=== PATIENT | female | born 1965 | race Caucasian/White ===

== ENCOUNTER 2016-12-13 06:36 | Emergency (ER) | payer OTHER ==
[2016-12-13 06:45] VITALS: BP 118/77; PULSE 90; TEMP 98.7; BMI 25.3
[2016-12-13] MEDS ORDERED: ONDANSETRON 4 MG/2 ML VIAL IVPUSH ONE (06:49)
[2016-12-13] MEDS ORDERED: SODIUM CHLORIDE 1,000 ML IV ONE (06:49)
[2016-12-13] MEDS ORDERED: KETOROLAC TROMETHAMINE 30 MG/1 ML VIAL IVPUSH ONE (06:49)
--- NOTE | 2016-12-13 06:53 | PDOC ---
History of Present Illness - General Chief Complaint: Pain, Acute Stated Complaint: UPPER ADBOMINAL PAIN Time Seen by Provider: 12/13/16 06:45 History Source: Patient Exam Limitations: No Limitations - History of Present Illness Initial Comments: 12/13/16 06:46 This is a 51-year-old female who comes in complaining of 2 days of right upper quadrant abdominal pain. Patient said that it is constant and crampy in nature. Patient said that eating food makes it worse. Patient says it is associated with some nausea and she has vomited twice. Patient denies any fevers or chills patient denies any diarrhea. Patient denies history of similar symptoms in the past. Patient said she is otherwise healthy. PAST MEDICAL HISTORY: no significant history PAST SURGICAL HISTORY: no significant history FAMILY HISTORY: no pertinant history SOCIAL HISTORY: Pt lives with family and is employed. MEDICATIONS: reviewed ALLERGIES: As per nursing notes Review of Systems General: No fevers or chills, no weakness, no weight loss HEENT: No change in vision. No sore throat,. No ear pain CardioVascular: No chest pain or shortness of breath Respiratory:No cough, or wheezing. Gastrointestinal: Nausea, vomiting, and abdominal pain as per history of present illness: No joint or muscle pain or swelling Neurologic: No headache, vertigo, dizziness or loss of consciousness Psychiatric: nor depression Skin: No rashes or easy bruising Endocrine: no increased thirst or abnormal weight change Allergic: no skin or latex allergy All other systems reviewed and normal Exam: General: Well-nourished well-developed individual, no acute distress HEENT: Throat: Normal, tonsils normal, no erythema or exudate Neck: Supple, no meningeal signs, no lymphadenopathy Eyes::Pupils equal reactive and round, extraocular motion intact Chest: Nontender to palpation Cardiac: S1-S2 normal, regular rate and rhythm, no murmurs rubs or gallops Respiratory: Lungs clear to auscultation bilateral Abdomen: Soft, nondistended, normal bowel sounds, tender to palpation, epigastric and right upper quadrant, there is no guarding or rebound. Extremities: Warm, dry, no cyanosis, clubbing, or edema Skin: No rashes Neuro: Alert and oriented x3, nonfocal exam, grossly intact, normal gait Psych: Normal mood and affect Care of this patient was transferred to Dr. Livier at 7 AM. Patient's complete workup is still pending including labs and IV and medications Case discussed in detail with oncoming Emergency Physician including history, physical exam and ancillary studies. Oncoming Emergency Physician has assumed care for the patient and will complete the evaluation and treatment. Patient is aware of the plan. Pt is clinically unchanged and stable. Past History - Past Medical History Allergies/Adverse Reactions: Allergies Allergy/AdvReac Type Severity Reaction Status Date / Time Apple Tree Allergy Mild Hives Verified 12/13/16 06:38 peanut [Peanut] Allergy Hives Verified 12/13/16 06:38 strawberry [[place]] AdvReac Hives Verified 12/13/16 06:38 bananas Allergy Mild Itching Uncoded 01/06/16 10:50 Home Medications: Ambulatory Orders Mag Hydrox/Al Hydrox/Simeth [MAALOX *SUSPENSION* -] 30 ml PO Q6H PRN #1 bottle 12/13/16 Ranitidine [Zantac -] 150 mg PO DAILY #14 tablet 12/13/16 Other medical history: DENIES - Psycho/Social/Smoking Cessation Hx Anxiety: No Suicidal Ideation: No Smoking Status: Yes Smoking History: Never smoked Have you smoked in the past 12 months: No Number of Cigarettes Smoked Daily: 0 Information on smoking cessation initiated: No Hx Alcohol Use: No Drug/Substance Use Hx: No Substance Use Type: None *Physical Exam - Vital Signs Last Vital Signs Temp Pulse Resp BP Pulse Ox 98.7 F 90 18 118/77 100 12/13/16 06:40 12/13/16 06:40 12/13/16 06:40 12/13/16 06:40 12/13/16 06:40 ED Treatment Course - LABORATORY CBC & Chemistry Diagram: 12/13/16 07:08 12/13/16 07:08 *DC/Admit/Observation/Transfer Diagnosis at time of Disposition: Epigastric pain - Discharge Dispostion Disposition: HOME Condition at time of disposition: Improved - Prescriptions Prescriptions: Mag Hydrox/Al Hydrox/Simeth [MAALOX *SUSPENSION* -] 30 ml PO Q6H PRN #1 bottle PRN Reason: Pain Ranitidine [Zantac -] 150 mg PO DAILY #14 tablet - Referrals Referrals: [facility] [Provider Group] - Patient Instructions Printed Discharge Instructions: DI for Gastroesophageal Reflux Disease (GERD) Additional Instructions: Return to the emergency department immediately with ANY new, persistent or worsening symptoms including any recurrent abdominal pain, fevers, chills, inability to tolerate oral intake or any other concerns. I suspect your symptoms are due to acid reflux. Stay away from alcohol, spicy foods, caffeine, acidic/sour foods. Take maalox if you have burning for relief. Continue using zantac every night for one week. 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 Your emergency department visit is not complete without a followup with your doctor for reevaluation. Results were discussed with you. Please make sure your doctor reviews the results of your emergency evaluation. Print Language: AZER[place] - Post Discharge Activity Work/School Note: Back to Work
[2016-12-13] MEDS ORDERED: KETOROLAC TROMETHAMINE 30 MG/1 ML VIAL ONE (07:09)
[2016-12-13] MEDS ORDERED: ONDANSETRON 4 MG/2 ML VIAL ONE (07:09)
[2016-12-13 07:15] LABS: PH,URINE 5.5 (4.5-8); URINE APPEARANCE Clear; URINE BILIRUBIN Negative (NEGATIVE); URINE BLOOD Negative (NEGATIVE); URINE COLOR YELLOW; URINE GLUCOSE (UA) Negative (NEGATIVE); URINE KETONE Trace (NEGATIVE); URINE LEUK ESTERASE Negative (NEGATIVE); URINE NITRITE Negative (NEGATIVE); URINE PROTEIN Negative (NEGATIVE); URINE UROBILINOGEN 0.2 (0.2-1.0)
--- NOTE | 2016-12-13 07:32 | PDOC ---
*Physical Exam - Vital Signs Last Vital Signs Temp Pulse Resp BP Pulse Ox 98.7 F 90 18 118/77 100 12/13/16 06:40 12/13/16 06:40 12/13/16 06:40 12/13/16 06:40 12/13/16 06:40 Heart Score/ECG Review - ECG Impressions Comment:: 12/13/16 07:53 Twelve-lead EKG was performed and reviewed by me. There is normal sinus rhythm with a normal rate. rate of 72 The axis is normal. The intervals are normal. There is normal R wave progression There are no ST or T wave abnormalities. Impression: Normal twelve-lead EKG ED Treatment Course - LABORATORY CBC & Chemistry Diagram: 12/13/16 07:08 12/13/16 07:08 - ADDITIONAL ORDERS Additional order review: Laboratory Results 12/13/16 07:08 Urine Color Yellow Urine Appearance Clear Urine pH 5.5 Ur Specific [place] 1.015 Urine Protein Negative Urine Glucose (UA) Negative Urine Ketones Trace Urine Blood Negative Urine Nitrite Negative Urine Bilirubin Negative Urine Urobilinogen 0.2 Ur Leukocyte Esterase Negative Urine HCG, Qual Negative - Medications Given in the ED: ED Medications Discontinued Medications Generic Name Dose Route Start Last Admin Trade Name Freq PRN Reason Stop Dose Admin Ketorolac Tromethamine 30 mg 12/13/16 06:49 12/13/16 07:15 Toradol Injection - IVPUSH 12/13/16 06:50 30 mg ONCE ONE Administration Ondansetron HCl 4 mg 12/13/16 06:49 12/13/16 07:15 Zofran Injection IVPUSH 12/13/16 06:50 4 mg ONCE ONE Administration Medical Decision Making - Medical Decision Making 12/13/16 07:51 Pt signed out to me from Dr. Oscar at approx 7am. 51y F pt here with several weeks of intermittent epigastric/ruq pain that seems worse after eating that she describes as burning/cramping, associated with vomting. Seems worse after eating greasy foods. Pt denies any history of gall stones. no associated fever/chills, cp, sob, exertional symptoms. on exam pt generally well appearing, withmild epigastric tenderness. suspect possible gall stones vs. GERD/gastritis pt awaiting blood work, US to r/o gall stones pt s/p toradol without significant improvement. will give her some pepcid/maalox 12/13/16 08:57 pts blood work unremarkable pt feeing limirpoved w/ pepcid/maalox awaiting US results, if no stones, suspect probably acid reflux 12/13/16 09:15 No gall stones on US pt feeling improved will dc with return precautions, zantac, maalox GI fu if not improved after 1-2 weeks I discussed the physical exam findings, ancillary test results and final diagnoses with the patient. I answered all of the patient's questions. The patient was satisfied with the care received and felt comfortable with the discharge plan and treatment plan. The patient will call their primary care physician within 24 hours to arrange follow-up and will return to the Emergency Department with any new, persistent or worsening symptoms. *DC/Admit/Observation/Transfer Diagnosis at time of Disposition: Epigastric pain - Discharge Dispostion Disposition: HOME Condition at time of disposition: Improved Admit: No - Prescriptions Prescriptions: Mag Hydrox/Al Hydrox/Simeth [MAALOX *SUSPENSION* -] 30 ml PO Q6H PRN #1 bottle PRN Reason: Pain Ranitidine [Zantac -] 150 mg PO DAILY #14 tablet - Referrals Referrals: [facility] [Provider Group] - Patient Instructions Printed Discharge Instructions: DI for Gastroesophageal Reflux Disease (GERD) Additional Instructions: Return to the emergency department immediately with ANY new, persistent or worsening symptoms including any recurrent abdominal pain, fevers, chills, inability to tolerate oral intake or any other concerns. I suspect your symptoms are due to acid reflux. Stay away from alcohol, spicy foods, caffeine, acidic/sour foods. Take maalox if you have burning for relief. Continue using zantac every night for one week. You MUST call and follow up with your doctor and mechanical estimator within 5 days for further evaluation of your symptoms. Your emergency department visit is not complete without a followup with your doctor for reevaluation. Results were discussed with you. Please make sure your doctor reviews the results of your emergency evaluation. Print Language: [place] - Post Discharge Activity Work/School Note: Back to Work
[2016-12-13 07:37] LABS: BASOPHIL 0.6 % (0-2.0); EOSINOPHIL 2.4 % (0-4.5); MCH 30.4 pg (25.7-33.7); MCHC 34.3 g/dl (32.0-36.0); MEAN CELL VOLUME 88.7 fl (80-96); MEAN PLT VOLUME 7.8 fl (7.5-11.1); NEUTROPHILS 57.5 % (42.8-82.8); PLATELET COUNT 289 K/MM3 (134-434); RDW 12.8 % (11.6-15.6); WHITE BLOOD COUNT 5.3 K/mm3 (4.0-10.8)
[2016-12-13] MEDS ORDERED: MAG HYDROX/AL HYDROX/SIMETH 355 ML ORAL.SUSP PO ONE (07:43)
[2016-12-13] MEDS ORDERED: FAMOTIDINE 20 MG/50 ML IVPB 20 MG in PREMIX 50 IVPB ONE (07:43)
[2016-12-13] MEDS ORDERED: MAG HYDROX/AL HYDROX/SIMETH 30 ML UNIT-DOSE CUP ONE (07:49)
[2016-12-13] MEDS ORDERED: FAMOTIDINE 20 MG/50 ML IVPB 50 ML IVPB ONE (07:49)
[2016-12-13 07:59] LABS: ALBUMIN 3.9 g/dl (3.5-5.0); ALK PHOS 46 U/L (32-92); ANION GAP 2 (8-16); BILIRUBIN,TOTAL 0.7 mg/dl (0.2-1.0); CALCIUM 9.1 mg/dl (8.4-10.2); CO2 26 mmol/L (22-28); CPK 56 IU/L (26-192); CREATININE 0.7 mg/dl (0.6-1.3); GLUCOSE,RANDOM 104 mg/dl (74-106); SGOT/AST 18 U/L (10-42); SGPT/ALT 10 U/L (10-40); TOT PROT 7.1 g/dl (6.4-8.3)
[2016-12-13 08:05] LABS: TROPONIN I (DFP) < 0.03 ng/ml (0.03-0.50)
--- NOTE | 2016-12-13 19:22 | EKG ---
Test Reason : Blood Pressure : / mmHG Vent. Rate : 072 BPM Atrial Rate : 072 BPM P-R Int : 140 ms QRS Dur : 084 ms QT Int : 392 ms P-R-T Axes : 080 064 060 degrees QTc Int : 429 ms NORMAL SINUS RHYTHM EARLY TRANSITION IN V2 WHEN COMPARED WITH ECG OF 20-APR-2011 08:33, T WAVES ARE INVERTED IN V2 CLI Confirmed by ELIZABETH WARREN MD ([id number]) on 12/13/2016 7:22:09 PM Referred By: ELLIE KIDD Confirmed By:ELIZABETH WARREN MD
== END 2016-12-13 09:13 | disposition home or self-care (01) ==
LOC: FER 06:36
PROC: 3E033GC Introduction of Other Therapeutic Substance into Peripheral Vein, Percutaneous Approach (ICD-10-PCS; principal; 2016-12-13)
PROC: 3E0333Z Introduction of Anti-inflammatory into Peripheral Vein, Percutaneous Approach (ICD-10-PCS; 2016-12-13)
PROC: 3E0337Z Introduction of Electrolytic and Water Balance Substance into Peripheral Vein, Percutaneous Approach (ICD-10-PCS; 2016-12-13)
DX: R10.13 Epigastric pain (principal)
CPT/HCPCS: 36415; 76705-TC; 80053; 81003; 83690; 84484; 84703; 85025; 93005; 99282-25

== ENCOUNTER 2019-02-20 19:55 | Emergency (ER) | payer BC, OTHER ==
[2019-02-20 20:00] VITALS: BP 109/67; PULSE 75; TEMP 98; BMI 32.8
[2019-02-20] MEDS ORDERED: METOCLOPRAMIDE HCL 10 MG TABLET (FP) PO ONE ×2 (20:35→20:38)
[2019-02-20] MEDS ORDERED: KETOROLAC TROMETHAMINE 60 MG/2 ML VIAL IM ONE (20:35)
[2019-02-20] MEDS ORDERED: KETOROLAC TROMETHAMINE 60 MG/2 ML VIAL ONE (20:38)
--- NOTE | 2019-02-20 20:59 | PDOC ---
Documentation entered by Viki Sow SCRIBE, acting as scribe for Dot Wheeler MD. Dot Wheeler MD: This documentation has been prepared by the savanahibe, Viki Sow SCRIBE, under my direction and personally reviewed by me in its entirety. I confirm that the documentation accurately reflects all work , treatment, procedures, and medical decision making performed by me. History of Present Illness - General Chief Complaint: Headache Stated Complaint: [place] Time Seen by Provider: 02/20/19 19:57 History Source: Patient Exam Limitations: No Limitations - History of Present Illness Initial Comments: 02/20/19 20:16 The patient is a 54-year-old female who presents to the emergency department with a headache and blurry vision. The patient presents with 3 weeks of mostly right-sided headache thats been worsening. The patient reports the symptoms presented initially were intermittent episodes of headaches associated with blurry vision. The patient reports the symptoms have progressed from occasional to constant. Denies photophobia or phonophobia. Denies numbness or tingling. LMP: January 26 PAST MEDICAL HISTORY: Headaches. PAST SURGICAL HISTORY: no significant history FAMILY HISTORY: no pertinent history SOCIAL HISTORY: Pt lives with family and is employed. MEDICATIONS: reviewed ALLERGIES: As per nursing notes Review of system: General: No fevers or chills, no weakness, no weight loss HEENT: +blurry vision. No sore throat,. No ear pain CardioVascular: No chest pain or shortness of breath Respiratory:No cough, or wheezing. Gastrointestinal: no nausea, vomiting, diarrhea or constipation, No rectal bleeding Genitourinary: No dysuria, hematuria, or frequency Musculoskeletal: No joint or muscle pain or swelling Neurologic: +headache. No vertigo, dizziness or loss of consciousness Psychiatric: nor depression Skin: No rashes or easy bruising Endocrine: no increased thirst or abnormal weight change Allergic: no skin or latex allergy All other systems reviewed and normal Physical exam: GENERAL: The patient is awake, alert, and fully oriented, in no acute distress. HEAD: Normal with no signs of trauma. Face: No tenderness over the sinuses. EYES: Pupils equal, round and reactive to light, extraocular movements intact, sclera anicteric, conjunctiva clear. EXTREMITIES: Normal range of motion, no edema. NEUROLOGICAL: Normal speech, normal gait. PSYCH: Normal mood, normal affect. SKIN: Warm, Dry, normal turgor, no rashes or lesions noted. Assessment and plan: This is a 54-year-old female with history of frequent severe headaches over the last several weeks. Patient did see a neurologist and was given but it sounds like Imitrex but says she continues to have headaches. Patient did not have a head CT so will obtain a head CT if head CT is negative we will give patient Toradol and Reglan and refer patient back to the neurologist. Patient had T CT shows no acute pathology so will medicate patient with some Toradol and Reglan. Patient discharged and given referral back to her neurologist if symptoms persist. Past History - Past Medical History Allergies/Adverse Reactions: Allergies Allergy/AdvReac Type Severity Reaction Status Date / Time Apple Tree Allergy Mild Hives Verified 12/13/16 06:38 peanut [Peanut] Allergy Hives Verified 12/13/16 06:38 strawberry [[place]] AdvReac Hives Verified 12/13/16 06:38 bananas Allergy Mild Itching Uncoded 01/06/16 10:50 Home Medications: Ambulatory Orders NK [No Known Home Medication] 02/20/19 - Psycho Social/Smoking Cessation Hx Smoking Status: Yes Smoking History: Never smoked Have you smoked in the past 12 months: No Number of Cigarettes Smoked Daily: 0 Hx Alcohol Use: No Drug/Substance Use Hx: No Substance Use Type: None *Physical Exam - Vital Signs Last Vital Signs Temp Pulse Resp BP Pulse Ox 98 F 75 14 109/67 100 02/20/19 19:56 02/20/19 19:56 02/20/19 19:56 02/20/19 19:56 02/20/19 19:56 ED Treatment Course - RADIOLOGY Radiology Studies Ordered: Category Date Time Status HEAD CT WITHOUT CONTRAST [CT] Stat CT Scan 02/20/19 20:06 Ordered Discharge - Discharge Information Problems reviewed: No Clinical Impression/Diagnosis: Migraine headache Qualifiers: Migraine type: with aura Status migrainosus presence: without status migrainosus Intractability: not intractable Qualified Code(s): G43.109 - Migraine with aura, not intractable, without status migrainosus Condition: Good Disposition: HOME - Admission No - Follow up/Referral - Patient Discharge Instructions Additional Instructions: Call your neurologist in the morning and get an appointment to follow-up again. Return to the emergency department immediately with ANY new, persistent or worsening symptoms. Continue any medications as previously prescribed by your physician. You should follow up with your primary doctor as soon as possible regarding today's emergency department visit. . Please make sure your doctor reviews the results of your emergency evaluation. Thank you for coming to the Emergency Department today for your care. It was a pleasure to see you today. Please note that your evaluation is INCOMPLETE until you follow-up with your doctor. - Post Discharge Activity
== END 2019-02-20 21:26 | disposition home or self-care (01) ==
LOC: FER 19:55
PROC: 3E0233Z Introduction of Anti-inflammatory into Muscle, Percutaneous Approach (ICD-10-PCS; principal; 2019-02-20)
DX: G43.109 Migraine with aura, not intractable, without status migrainosus (principal)
CPT/HCPCS: 70450-TC; 99282-25